=== PATIENT | male | born 1960 | race Two or more races ===

== ENCOUNTER 2022-07-17 07:11 | Outpatient (CLI) | payer OTHER | END 2022-07-17 07:15 | disposition home or self-care (01) | LOC: NUCLEAR 07:11 | PROVIDERS: ATTEND Internal Medicine Hematology & Oncology | DX: C43.72 Malignant melanoma of left lower limb, including hip (principal) | CPT/HCPCS: 78816; A9552 ==

== ENCOUNTER → 2024-11-24 07:25 | Outpatient (CLI) | payer OTHER | END | disposition home or self-care (01) | LOC: NUCLEAR 07:25 | DX: C43.72 Malignant melanoma of left lower limb, including hip (principal) ==

== ENCOUNTER 2025-08-05 07:20 | Outpatient (CLI) | payer OTHER | END 2025-08-05 07:21 | disposition home or self-care (01) | LOC: NUCLEAR 07:20 | PROVIDERS: ATTEND Surgery | DX: C43.22 Malignant melanoma of left ear and external auricular canal (principal) | CPT/HCPCS: 78815; A9552 ==